=== PATIENT | female | born 1945 | race Caucasian/White ===

== ENCOUNTER 2017-03-12 06:29 | Inpatient (IN) | payer MEDICARE, BC ==
[~2017-03-12] VITALS: Ht 154.9 cm; Wt 68.4 kg
[~2017-03-12 06:29] MED LIST: ASPI325T80 PO; FLEC150T PO; MAGN250T4 PO; METO25TA35 PO; MULT-717 PO; PRAV20TA2 PO
[2017-03-12] MEDS ORDERED: SODIUM CHLORIDE 0.9% 1,000 ML IV ONE (06:54)
[2017-03-12] MEDS ORDERED: SODIUM CHLORIDE FLUSH 10ML SYR IVF ONE (07:00)
[2017-03-12 07:26] LABS: BLOOD UREA NITROGEN 16 mg/dL (7-18)
[2017-03-12 07:32] LABS: IS PT STATUS REG ER OR PRE ER? YES
[2017-03-12] MEDS ORDERED: AZITHROMYCIN 500 MG in SODIUM CHLORIDE 0.9% 250 ML IVPB ONE (08:00)
[2017-03-12] MEDS ORDERED: CEFTRIAXONE PMX 1GM/50ML 50 ML IVPB ONE (08:00)
[2017-03-12] MEDS ORDERED: SODIUM CHLORIDE FLUSH 10ML SYR IVF PRN (08:00)
[2017-03-12] MEDS ORDERED: CEFTRIAXONE PMX 1GM/50ML 50 ML ONE (08:08)
[2017-03-12] MEDS ORDERED: SODIUM CHLORIDE 0.9% 1,000 ML IV SCH (09:13)
[2017-03-12] MEDS ORDERED: ACETAMINOPHEN 325 MG TABLET PO PRN (09:30)
[2017-03-12] MEDS ORDERED: DOCUSATE 100 MG CAPSULE PO PRN (09:30)
[2017-03-12] MEDS ORDERED: NITROGLYCERIN 0.4 MG BOTTLE (25 TABS) SL PRN (09:30)
[2017-03-12] MEDS ORDERED: MORPHINE SULFATE 4 MG/ML, 1ML IVPush PRN (09:30)
[2017-03-12] MEDS ORDERED: GUAIFENESIN/DM 200-20MG, 10ML UDC PO PRN (09:30)
[2017-03-12] MEDS ORDERED: PROMETHAZINE 25 MG/ML, 1ML IM PRN (09:30)
[2017-03-12] MEDS ORDERED: ENALAPRILAT 1.25 MG/ML, 2ML IVPush PRN (09:30)
[2017-03-12] MEDS ORDERED: HYDROcodone/APAP 5/325 TABLET PO PRN (09:30)
[2017-03-12] MEDS ORDERED: LORazepam 2 MG/ML, 1ML IVPush PRN (09:30)
[2017-03-12] MEDS ORDERED: POLYETHYLENE GLYCOL 17 GM PACKET PO PRN (09:30)
[2017-03-12 09:55] VITALS: BP 118/71
[2017-03-12] MEDS: ENOXAPARIN 40 MG/0.4 ML SQ SCH (10:27)
[2017-03-12 12:20] VITALS: BP 107/67
[2017-03-12 13:38] LABS: IS PT STATUS REG ER OR PRE ER? NO
[2017-03-12] MEDS ORDERED: METO25TA9 PO (18:21)
[2017-03-12 19:36] VITALS: BP_SYST 108; BP_SYST 115; BP_DIAS 65; BP_DIAS 67
[2017-03-12 19:37] LABS: IS PT STATUS REG ER OR PRE ER? NO
[2017-03-12] MEDS ORDERED: METOPROLOL TARTRATE 25 MG TABLET PO SCH (21:00)
[2017-03-12] MEDS ORDERED: METOPROLOL SUCCINATE 25 MG TAB.ER.24H PO SCH (21:00)
[2017-03-12] MEDS ORDERED: PRAVASTATIN 40 MG TABLET PO SCH (21:00)
[2017-03-13 03:08] VITALS: BP 110/70
[2017-03-13 05:46] LABS: BLOOD UREA NITROGEN 17 mg/dL (7-18)
[2017-03-13 05:50] LABS: ASPARTATE AMINO TRANSFERASE 15 U/L (15-37)
[2017-03-13] MEDS ORDERED: ASPIRIN 325 MG TABLET EC PO SCH (06:00)
[2017-03-13] MEDS ORDERED: CEFTRIAXONE PMX 2GM/50ML 50 ML IV SCH (08:30)
[2017-03-13] MEDS ORDERED: MULTIVITAMINS/MINERALS TABLET PO SCH (09:00)
[2017-03-13] MEDS: ENOXAPARIN 40 MG/0.4 ML SQ SCH (09:01)
[2017-03-13 09:20] VITALS: BP 99/65
[2017-03-13] MEDS ORDERED: DOXY100T PO (09:47)
[2017-03-13] MEDS ORDERED: CEFD300C37 PO (09:47)
[2017-03-13] MEDS ORDERED: AZITHROMYCIN 250 MG TABLET PO SCH (10:00)
[2017-03-13] MEDS ORDERED: AZITHROMYCIN 500 MG in SODIUM CHLORIDE 0.9% 250 ML IV SCH (10:00)
== END 2017-03-13 12:40 | disposition home or self-care (01) | DRG 308 ==
LOC: ED 07:49 → EDIP 07:50 → ED 07:53 → 5SO 09:38 → DCLOUNGE 03-13 12:23
PROVIDERS: ADMIT Hospitalist; ATTEND Hospitalist
DX: I49.1 Atrial premature depolarization (principal); J18.9 Pneumonia, unspecified organism; E87.1 Hypo-osmolality and hyponatremia; E44.1 Mild protein-calorie malnutrition; I10 Essential (primary) hypertension; G47.33 Obstructive sleep apnea (adult) (pediatric); E78.5 Hyperlipidemia, unspecified; I35.1 Nonrheumatic aortic (valve) insufficiency; I48.91 Unspecified atrial fibrillation; Z79.82 Long term (current) use of aspirin; Z85.3 Personal history of malignant neoplasm of breast; Z88.0 Allergy status to penicillin; Z80.3 Family history of malignant neoplasm of breast; Z88.7 Allergy status to serum and vaccine; Z68.28 Body mass index [BMI] 28.0-28.9, adult
CPT/HCPCS: 36415; 71010; 80048; 80053; 80061; 82040; 83735; 83880; 84100; 84436; 84443; 84484; 85025; 87040; 87070; 87205; 93005; 93306; 96361; 96365; J0456; J0696; J7030; J7050

== ENCOUNTER → 2017-10-24 | Outpatient (CLI) | payer MEDICARE, BC ==
[~2017-10-24] MED LIST changes: +CEFD300C37 PO; +DOXY100T PO; -MAGN250T4 PO; +MAGN250T9 PO; +METO-282 PO; +OMNIPAQUE 350 MG/ML, 75ML BOTTLE ONE
== END | disposition home or self-care (01) ==
LOC: CFH 08:32
PROVIDERS: ATTEND Internal Medicine Hematology & Oncology
DX: C50.911 Malignant neoplasm of unspecified site of right female breast (principal); K44.9 Diaphragmatic hernia without obstruction or gangrene
CPT/HCPCS: 71260; Q9967